=== PATIENT | female | born 2000 | race Caucasian/White ===

== ENCOUNTER 2018-06-21 15:15 | Emergency (ER) | payer BC, SELFPAY ==
[2018-06-21 15:16] VITALS: BP 156/95; PULSE 93; RESP 16; TEMP 36.7; O2SAT 99; BMI 29.1
--- NOTE | 2018-06-21 15:31 | CT_ITS ---
STUDY: CT ABDOMEN AND PELVIS WITHOUT CONTRAST REASON FOR EXAM: Female, 18 years old. Right flank pain x6 days. RADIATION DOSAGE (If Supplied By Facility): CTDIvol = ( 8.42 ) mGy, DLP = ( 394.08 ) mGycm TECHNIQUE: Transaxial images were obtained from the dome of the diaphragm to the symphysis pubis without oral contrast, and without intravenous contrast. Sagittal and coronal images were reconstructed. Individualized dose optimization techniques were used for this CT. COMPARISON: None. FINDINGS: The visualized lung bases are unremarkable. The visualized portions of the heart are within normal limits. Normal liver. Normal gallbladder and extrahepatic biliary system. Normal spleen. Normal pancreas. Normal bilateral adrenal glands. The kidneys are unremarkable. No stones or hydronephrosis. The ureters are normal in course and caliber. No ureteral stones are seen. The aorta is normal in caliber. There is no bowel obstruction or inflammatory change. The appendix is normal. Moderate stool burden. Normal urinary bladder. Normal visualized uterus. Normal abdominal wall. Normal osseous structures. CT/Abdomen/Pelvis without Cont IMPRESSION: Normal unenhanced CT of the abdomen and pelvis. Electronically Signed: Mary Alice Ledesma MD at 16:47 EDT Tel , Service support ,
--- NOTE | 2018-06-21 15:32 | ED.VISSUMM ---
- ER Visit Summary Date of Service: 06/21/18 Chief Complaint: Kidney stones History of Present Illness: The patient is a 18 F with a history of kidney stones. She presents for right flank pain. This started 6 days ago. Associated with nausea but no other symptoms. She had similar symptoms in the past with kidney stones and has required lithotripsy. She had her urinalysis checked recently. It was negative for infection but did show some blood. She has a history of platelet dysfunction and low factor VII. She says that she cannot take NSAIDs. Physical Examination: Afebrile vital signs unremarkable. No acute distress. Heart regular. Lungs clear. Abdomen soft. Right flank tender to palpation. Skin appears normal. Test Results: Labs, urinalysis, CT pending. Emergency Department Course and Treatment: Patient treated with fluids, morphine, and Zofran while awaiting results. CBC normal. Potassium 3.0. Chloride 108 and CO2 20. Urinalysis shows signs of infection. Cultures pending. test was negative. CT was unremarkable. Treated with potassium by mouth. Patient does not have evidence of stone. She is not septic, but her urine is concerning for an infection. We will treat with Cipro. Risks were discussed. She was advised to follow-up with her doctors for a recheck. Return for any new or worsening issues. Treatment Plan: As above Disposition: Discharged Impression: 1. Acute pyelonephritis 2. Hypokalemia This note was generated with [employer] dictation software. It may contain incorrect words, spelling, and punctuation that were not noted in review of the chart prior to signing ED Disposition - Plan for ED Patient: Chief Complaint: Flank Pain Referrals: [facility] ,Out of [Primary Care Provider] -
--- NOTE | 2018-06-21 15:36 | ED.DCSUM_ITS ---
- ER Visit Summary Date of Service: 06/21/18 Chief Complaint: Kidney stones History of Present Illness: The patient is a 18 F with a history of kidney stones. She presents for right flank pain. This started 6 days ago. Associated with nausea but no other symptoms. She had similar symptoms in the past with kidney stones and has required lithotripsy. She had her urinalysis checked recently. It was negative for infection but did show some blood. She has a history of platelet dysfunction and low factor VII. She says that she cannot take NSAIDs. Physical Examination: Afebrile vital signs unremarkable. No acute distress. Heart regular. Lungs clear. Abdomen soft. Right flank tender to palpation. Skin appears normal. Test Results: Labs, urinalysis, CT pending. Emergency Department Course and Treatment: Patient treated with fluids, morphine , and Zofran while awaiting results. CBC normal. Potassium 3.0. Chloride 108 and CO2 20. Urinalysis shows signs of infection. Cultures pending. test was negative. CT was unremarkable. Treated with potassium by mouth. Patient does not have evidence of stone. She is not septic, but her urine is concerning for an infection. We will treat with Cipro. Risks were discussed. She was advised to follow-up with her doctors for a recheck. Return for any new or worsening issues. Treatment Plan: As above Disposition: Discharged Impression: 1. Acute pyelonephritis 2. Hypokalemia This note was generated with [employer] dictation software. It may contain incorrect words, spelling, and punctuation that were not noted in review of the chart prior to signing ED Disposition - Plan for ED Patient: Chief Complaint: Flank Pain Referrals: [facility] ,Out of [Primary Care Provider] -
[2018-06-21 15:58] LABS: Absolute Lymphocyte Count 1.98 X10^3/ul (0.83-4.51); Absolute Neutrophil Count 4.2 X10^3/uL (2.0-7.7); Basophil# 0.02 X10^3/uL; Basophil% 0.3 % (0-1); Eosinophil# 0.07 X10^3/uL; Hematocrit 42.1 % (37-47); Hemoglobin 14.4 g/dl (12.0-15.0); Lymphocyte # 1.98 X10^3/ul (4.0); Lymphocyte % 28.2 % (19-41); Mean Corp Hgb Conc 34.2 g/gl (32-36); Mean Corpuscular Hgb 30.1 pg (27.0-32.0); Mean Corpuscular Volume 87.9 fL (81-99); Mean Platelet Vol. 10.6 fl (6.2-12.0); Monocyte# 0.78 X10^3/uL; Monocyte% 11.1 % (0-10); Neutrophil # 4.16 X10^3/uL (2.7-7.7); Neutrophil % 59.4 % (47-70); Platelet Count 294 K/mm3 (150-450); RBC Distribution Width CV 12.9 % (11.6-14.6); RBC Distribution Width SD 41.4 fl (35.1-43.9); Red Blood Count 4.79 M/mm3 (4.2-5.4)
[2018-06-21 16:01] LABS: POSITIVE COUNT NO; POSITIVE DIFFERENTIAL NO; POSITIVE MORPHOLOGY NO
[2018-06-21 16:08] LABS: Anion Gap 13 (5-15); BUN 12 mg/dL (7-18); Chloride 108 mmol/L (98-107); EST Glomerular Filtration Rate 75 mL/min (>60); Est Glom Filt Rate - Afr Amer 91 mL/min (>60); Estimated Creatinine Clearance 74.23 ml/min; Glucose 95 mg/dL (74-106); Sodium Level 141 mmol/L (136-145)
[2018-06-21] MEDS: Ondansetron 4 MG/2 ML Vial IV (16:09)
[2018-06-21] MEDS: Morphine 4 MG/ML Syringe IV (16:09)
[2018-06-21] MEDS: 0.9% Normal Saline 1,000 ML 1000 ML IV (16:09)
[2018-06-21 16:21] LABS: Pregnancy, Serum, hCG Quali. NEGATIVE Negative (0-9 Nonpreg)
[2018-06-21 16:57] LABS: Internal QC Validated? YES +Cl - CLEAR BKGD; Pregnancy, Urine Negative Negative
[2018-06-21 17:25] VITALS: RESP 14
[2018-06-21 17:51] VITALS: BP 145/98; PULSE 85; RESP 14; O2SAT 98
[2018-06-21 18:03] LABS: Color, Urine Yellow (Yellow); Glucose, Dipstick Normal (Normal); Ketone-Dipstick Negative (Negative); Leukocyte Esterase-Dipstick 500 /ul (Negative); Nitrite-Dipstick Negative (Negative); Occult Blood-Urine 25 /ul (Negative); Protein-Dipstick 15 mg/dl (Negative); Specific Gravity, Urine 1.025 (1.002-1.030); Urine Bilirubin Dipstick Negative (Negative); Urine Clarity Clear (Clear); Urine Urobilinogen Normal (Normal)
[2018-06-21 18:17] LABS: Red Blood Cells-Urine 5-10 SEEN /hpf (0-5); Squamous Epithelial Cells - UA 5-10 SEEN /hpf (5-10); White Blood Cells 50-100 SEEN /hpf (0-5)
[2018-06-21 18:18] LABS: Bacteria RARE /hpf (None Seen); Calcium Oxalate Crystals Ur 2+ /hpf (<or=2+); Mucous, Urine RARE /hpf (<or=2+)
--- NOTE | 2018-06-21 18:24 | ED.DEP ---
ED Disposition - Plan for ED Patient: Chief Complaint: Flank Pain Instructions: ED Kidney Infec Female Prescriptions: Ciprofloxacin [Cipro] 500 mg PO BID #14 tab Additional Instructions: Follow up with your college doctor
[2018-06-21 18:42] VITALS: BP 131/92; PULSE 87; RESP 15; O2SAT 98
--- NOTE | 2018-06-21 18:43 | ED.RN ---
PT GIVEN WRITTEN AND VERBAL DISCHARGE INSTRUCTIONS. PT VERBALIZES UNDERSTANDING AND DENIES ANY FURTHER QUESTIONS. PT FRIEND DRIVING PT BACK TO CAMPUS. EDUCATED NOT TO DRIVE FOR 6 HOURS. PT DRESSES SELF AND AMBULATES OUT OF DEPT WITH FRIEND.
== END 2018-06-21 18:44 | disposition home or self-care (01) ==
PROVIDERS: Emergency Provider Emergency Medicine
DX: N10 Acute pyelonephritis (principal); E87.6 Hypokalemia; D69.1 Qualitative platelet defects; J45.909 Unspecified asthma, uncomplicated; G43.909 Migraine, unspecified, not intractable, without status migrainosus; Z87.442 Personal history of urinary calculi; Z79.899 Other long term (current) drug therapy
CPT/HCPCS: 74176; 80048; 81001; 81025; 84703; 85025; 87086; 87088; 96361; 96374; 96375; 99284; J7030; A4216; J2405